=== PATIENT | male | born 1985 | race Two or more races ===

== ENCOUNTER 2019-03-15 08:34 | Emergency (ER) | payer OTHER ==
[~2019-03-15] VITALS: Ht 180.3 cm; Wt 63.5 kg
[2019-03-15] MEDS ORDERED: ULTRAM50 MG PO (11:49)
[2019-03-15] MEDS ORDERED: VOLTAREN-XR100 MG PO (11:49)
[2019-03-15] MEDS ORDERED: VOLTAREN100 GM TOP (11:49)
[2019-03-15] MEDS ORDERED: SKELAXIN800 MG PO (11:49)
== END 2019-03-15 12:01 | disposition home or self-care (01) ==
LOC: ER 08:34
DX: M54.12 Radiculopathy, cervical region (principal); M62.838 Other muscle spasm; M25.511 Pain in right shoulder; M54.2 Cervicalgia